=== PATIENT | male | born 1960 | race Caucasian/White ===

== ENCOUNTER 2023-03-26 10:07 | Observation (INO) | payer OTHER, SELFPAY ==
[2023-03-26] VITALS (28 sets, daily range): BP systolic 126–160; BP diastolic 76–96; PULSE 51–77; RESP 16–20; TEMP 36.4–36.9; O2SAT 95–99; BMI 30.3
--- NOTE | 2023-03-26 10:33 | CRLHL7_ITS ---
For Patients: As a result of the Century Cures Act, medical imaging exams and procedure reports are released immediately into your electronic medical record. You may view this report before your referring provider. If you have questions, please contact your health care provider. INDICATION: Chest pain, shortness of breath, leg pain, swelling. TECHNIQUE: CT chest PE was acquired with 95 cc Isovue 370 IV contrast. COMPARISON: None. FINDINGS: Heart and vasculature: Contrast opacification of the pulmonary arterial tree is adequate. Acute multifocal pulmonary emboli involving the bilateral upper and lower lobe segmental/subsegmental pulmonary arteries.. Cardiomegaly with coronary artery calcifications. Mild ascending aortic aneurysm measuring 4.0 centimeters.. Lungs and pleura: Some ground-glass consolidation the left lung base, possibly related to pulmonary infarction. Trace left pleural effusion with compressive atelectasis. No pneumothorax. Lymph nodes/mediastinum: No mediastinal, hilar, or axillary adenopathy. Chest wall: No masses. Upper abdomen: No acute or significant findings. Bones: Unremarkable for age. IMPRESSION: Acute multifocal pulmonary emboli involving the bilateral upper and lower lobe segmental/subsegmental pulmonary arteries. Some flattening of the intraventricular septum which could suggest early right heart strain, however study is confounded by cardiomegaly. Recommend correlation with troponin. Some ground-glass consolidation in the left lung base, likely pulmonary infarction. No focal consolidations. Trace left pleural effusion. Case discussed with Matt Carrera at 12:52 p.m. on 03/26/20[address] Please note that all CT scans at this facility use dose modulation, iterative reconstruction, and/or weight-based dosing when appropriate to reduce radiation dose to as low as reasonably achievable. Dictated by Tutu Monroe MD @ 03/26/2023 12:54:27 PM (Electronically Signed)
--- NOTE | 2023-03-26 10:34 | CRLHL7_ITS ---
For Patients: As a result of the Century Cures Act, medical imaging exams and procedure reports are released immediately into your electronic medical record. You may view this report before your referring provider. If you have questions, please contact your health care provider. INDICATION: Swell COMPARISON: None. TECHNIQUE: A compression venous ultrasound exam was performed of the right lower extremity using li-scale imaging, color Doppler and spectral Doppler analysis. FINDINGS: Sonographic imaging of the right lower extremity demonstrates normal compressibility and color Doppler venous blood flow within the common femoral vein, deep femoral vein, and the proximal greater saphenous vein. Within the thigh, the femoral vein is patent and compressible. At a lower level, the popliteal and posterior tibial veins also do not show compressibility and color Doppler venous blood flow. Hypoechoic clot is present within the posterior tibial vein, popliteal vein and peroneal veins. Limited imaging of the contralateral groin demonstrates a normal spectral waveform and color Doppler venous blood flow within the left common femoral vein. IMPRESSION: Positive DVT within the right distal popliteal vein, peroneal veins and posterior tibial vein. Spoke with Dr. Carrera [id number] 03.26.23. Dictated by Tony Florentino MD @ 03/26/2023 11:55:59 AM (Electronically Signed)
--- NOTE | 2023-03-26 10:36 | ED.GENADULT ---
HPI - General Adult General Time Seen by Provider: 10:36 Date Seen: 03/26/23 Chief complaint: Lower Extremity Swelling Stated complaint: Swelling R leg Time Seen by Provider: 03/26/23 10:24 Source: patient Mode of arrival: ambulatory Limitations: no limitations History of Present Illness HPI narrative: Patient is a 62 year white male who has had right leg swelling for the last couple of days it has been tender at times and disc uncomfortable he feels that is more enlarged than his left leg. On measurement he has 2 cm bigger calf circumference on the right than left. He has also had some left-sided chest discomfort that woke him from sleep a couple nights ago did not recur last night. But it has been intermittently tenderness posterior chest. He denies anterior chest pain denies diaphoresis or nausea. Generally is healthy, his cholesterol has been good he is nonhypertensive nondiabetic. He has no reported significant family history. The patient reports he probably had COVID as his was tested positive about a month ago, he had similar symptoms. He has gotten better from that but still feels some fatigue. No other specific complaints. At times he does feel little short of breath but not continually. His O2 sat here is 97% on room air. Related Data Home Medications Medication Instructions Recorded Confirmed aspirin 81 mg capsule 81 mg PO DAILY 03/26/23 03/26/23 ibuprofen 200 mg tablet (Advil) 200 mg PO Q8H 03/26/23 03/26/23 Previous Rx's Medication Instructions Recorded rivaroxaban 15 mg (42)-20 mg (9) See Rx Instructions PO .COMPLEX 03/26/23 tablets in a starter pack (Xarelto #51 ea DVT-PE Treatment 30-Day Starter) Allergies Allergy/AdvReac Type Severity Reaction Status Date / Time No Known Drug Allergies Allergy Verified 03/26/23 10:16 Review of Systems Status of ROS: Reports: 10 or more systems reviewed and unremarkable except as noted in History and below PFSH PFSH Social History Smoking Status: Never smoker Do you use any of these nicotine containing products: None How often do you have a drink containing alcohol: 4 or more times a week How many standard drinks containing alcohol do you have on a typical day: 1 or 2 How often do you have six or more drinks on one occasion: Never AUDIT-C Alcohol total score: 4 Non-prescribed substance use: denies use service: No Exam Narrative: Exam Narrative: Objective: Vital signs show elevated blood pressure, pulse regular at 77 respiratory rate 18 unlabored O2 sat 97% on room air temperature 97.6? HEENT is unremarkable no cyanosis , speaks in even unlabored sentences Chest is clear Heart rhythm regular heart murmur Abdomen benign soft Extremities show 2 cm increase in calf circumference on the right versus left, negative Homans sign Good distal CMS in lower extremities Const: Vital Signs, click to edit/add: Vital Signs - 24 hr 03/26/23 10:17 03/26/23 10:33 03/26/23 11:36 Temperature 97.6 F Pulse Rate 60 Pulse Rate [Right Pulse Oximeter] 77 Respiratory Rate 18 Blood Pressure 136/85 Blood Pressure [Ri ght Upper Arm] 159/95 H Pulse Oximetry 97 99 98 Oxygen Delivery Me thod Room Air 03/26/23 11:37 03/26/23 11:45 03/26/23 12:11 Temperature Pulse Rate 62 62 58 L Pulse Rate [Right Pulse Oximeter] Respiratory Rate Blood Pressure Blood Pressure [Ri ght Upper Arm] Pulse Oximetry 98 97 95 Oxygen Delivery Me thod 03/26/23 12:15 03/26/23 12:21 03/26/23 12:30 Temperature Pulse Rate 53 L 51 L 52 L Pulse Rate [Right Pulse Oximeter] Respiratory Rate Blood Pressure 134/85 Blood Pressure [Ri ght Upper Arm] Pulse Oximetry 98 98 99 Oxygen Delivery Me thod 03/26/23 12:32 03/26/23 12:45 03/26/23 13:00 Temperature Pulse Rate 52 L 51 L 52 L Pulse Rate [Right Pulse Oximeter] Respiratory Rate Blood Pressure 145/79 H Blood Pressure [Ri ght Upper Arm] Pulse Oximetry 98 99 99 Oxygen Delivery Me thod 03/26/23 13:02 03/26/23 13:15 03/26/23 13:49 Temperature Pulse Rate 54 L 55 L 57 L Pulse Rate [Right Pulse Oximeter] Respiratory Rate Blood Pressure 160/96 H Blood Pressure [Ri ght Upper Arm] Pulse Oximetry 98 99 99 Oxygen Delivery Me thod Course Vital Signs Vital signs: Initial Vital Signs Temperature 97.6 F 03/26/23 10:17 Temperature Source Temporal Artery Scan 03/26/23 10:17 Pulse Rate 77 03/26/23 10:17 Respiratory Rate 18 03/26/23 10:17 Blood Pressure 159/95 H 03/26/23 10:17 Blood Pressure Mean 116 H 03/26/23 10:17 Blood Pressure Position Sitting 03/26/23 10:17 Pulse Oximetry 97 03/26/23 10:17 Oxygen Delivery Method Room Air 03/26/23 10:17 Vital Signs Temperature 97.6 F 03/26/23 10:17 Pulse Rate 77 03/26/23 10:17 Respiratory Rate 18 03/26/23 10:17 Blood Pressure 159/95 H 03/26/23 10:17 Pulse Oximetry 97 03/26/23 10:17 Oxygen Delivery Method Room Air 03/26/23 10:17 Temperature 97.6 F 03/26/23 10:17 Pulse Rate 57 L 03/26/23 13:49 Respiratory Rate 18 03/26/23 10:17 Blood Pressure 160/96 H 03/26/23 13:02 Pulse Oximetry 99 03/26/23 13:49 Oxygen Delivery Method Room Air 03/26/23 10:17 Medical Decision Making MDM Narrative Medical decision making narrative: [age] year white male with an unremarkable past medical history with right calf swelling and pain, leg pain, and some left posterior chest discomfort over the last couple of days. Rule out DVT, rule out PE, check labs, ultrasound of the right lower extremity and CT scan of the chest. Laboratory studies as mention. Will start aspirin, some IV fluid, disposition pending findings above. Patient comfortable plan. Given his recent probable COVID, concern for hypercoagulable state would be present. The patient's EKG by my read shows normal sinus rhythm no acute ST T wave changes Addendum 1:22 p.m. the patient's EKG by my read looks unremarkable for ST T wave changes, CRP slightly elevated D-dimer is markedly elevated 3.93, troponin importantly is negative, white count hemoglobin are normal. ER profile is largely unremarkable other than nonfasting glucose 139, proBNP is normal 141. Patient has extensive DVT in his right lower extremity below the knee, he also has segmental and subsegmental pulmonary emboli and bilateral lungs. I did discuss this with the [place] transportation refrigeration technician who recommended 24 hours of observation, IV heparin, and possibly an echo before he goes home and then repeat the echo in 3 months. He can likely go home on Xarelto treatment dose. Will discuss with hospitalist regarding admission plan. Lab Data Labs: Lab Results 03/26/23 Range/Units 10:55 WBC 7.31 (4.50-11.00) K/uL RBC 4.24 L (4.30-5.90) m/uL Hgb 13.5 (13.5-17.5) gm/dL Hct 39.0 (37.0-53.0) % MCV 92 (80-100) fL MCH 32 (26-34) pg MCHC 35 (32-36) gm/dL RDW Coeff of Felicia 12.1 (11.5-15.5) % Plt Count 272 (140-440) K/uL Neut % (Auto) 72.6 H (42.0-72.0) % Lymph % (Auto) 11.8 L (20-44) % Travis % (Auto) 12.4 H (0.0-11.0) % Eos % (Auto) 2.7 (0.0-7.0) % Baso % (Auto) 0.4 (0.0-3.0) % Neut # (Auto) 5.30 (1.7-7.0) K/uL Lymph # (Auto) 0.90 (0.90-2.90) K/uL Travis # (Auto) 0.90 (0.00-0.90) K/UL Eos # (Auto) 0.20 (0.00-0.50) K/uL Baso # (Auto) 0.03 (0.00-0.30) K/uL Abs Immat Gran (auto) 0.01 (0.00-0.30) K/uL Imm/Tot Granulo (auto) 0.1 % INR 0.96 (0.91-1.10) APTT 31 (23-33) Seconds D-Dimer Quant (PE/DVT) 3.93 H (0.00-0.50) ug/ml Sodium 135 (135-149) mmol/L Potassium 4.0 (3.6-5.1) mmol/L Chloride 101 (96-114) mmol/L Carbon Dioxide 25 (20-32) mmol/L Anion Gap 9 (7-15) mEq/L BUN 13 (7-30) mg/dL Creatinine 0.8 (0.5-1.5) mg/dL Estimated Creat Clear 77.06 Estimated GFR 99 ml/min Glucose 139 H (60-115) mg/dL Calcium 8.7 (8.4-10.6) mg/dL Total Bilirubin 1.0 (0.1-1.5) mg/dL Direct Bilirubin 0.0 (0.0-0.5) mg/dL AST 47 H (12-35) U/L ALT 52 H (4-50) U/L Alkaline Phosphatase 74 (40-150) U/L Troponin I < 0.01 L (0.01-0.04) ng/mL C-Reactive Protein 6.2 H (0.5-1.0) mg/dL NT-Pro-B Natriuret Pep 141 pg/mL Total Protein 7.5 (6.0-8.3) g/dL Albumin 4.0 (3.3-5.0) g/dL Discharge Plan Discharge Clinical Impression: Right leg swelling, Chest pain, Deep vein thrombosis Patient Disposition: Admitted As Inpatient Condition: Stable
[2023-03-26] MEDS: ASPIRIN 81 MG TAB.CHEW 324 MG PO (10:50)
[2023-03-26 11:24] LABS: Chloride* 101 mmol/L (96-114); Sodium* 135 mmol/L (135-149)
[2023-03-26] MEDS: 0.9 % SODIUM CHLORIDE 500 ML 500 ML IV (11:25)
[2023-03-26 11:26] LABS: Basophils Absolute Auto 0.03 K/uL (0.00-0.30); Basophils Percent Auto 0.4 % (0.0-3.0); Creatinine* 0.8 mg/dL (0.5-1.5); Eosinophils Percent Auto 2.7 % (0.0-7.0); Est. Creatinine Clearance* 77.06; Estimated Glomerular Filt Rate 99 ml/min; Hemoglobin* 13.5 gm/dL (13.5-17.5); Immature Granulocytes Abs Auto 0.01 K/uL (0.00-0.30); Immature Granulocytes Pct Auto 0.1 %; Lymphocytes Percent Auto 11.8 % (20-44); Mean Corpuscular HGB Conc 35 gm/dL (32-36); Mean Corpuscular Hemoglobin 32 pg (26-34); Mean Corpuscular Volume 92 fL (80-100); Monocytes Percent Auto 12.4 % (0.0-11.0); Neutrophils Percent Auto 72.6 % (42.0-72.0); Platelet Count* 272 K/uL (140-440); RDW Coefficient of Variation % 12.1 % (11.5-15.5); Red Blood Count 4.24 m/uL (4.30-5.90); White Blood Count* 7.31 K/uL (4.50-11.00)
[2023-03-26 11:27] LABS: Alanine Aminotransferase* 52 U/L (4-50); Alkaline Phosphatase* 74 U/L (40-150); Anion Gap 9 mEq/L (7-15); Aspartate Amino Transferase* 47 U/L (12-35); Blood Urea Nitrogen* 13 mg/dL (7-30); Carbon Dioxide* 25 mmol/L (20-32); Total Protein* 7.5 g/dL (6.0-8.3)
[2023-03-26 11:28] LABS: Calcium* 8.7 mg/dL (8.4-10.6); Glucose* 139 mg/dL (60-115)
[2023-03-26 11:30] LABS: C Reactive Protein* 6.2 mg/dL (0.5-1.0); Slide Review Reflex No
[2023-03-26 11:33] LABS: D Dimer Quantitative* 3.93 ug/ml (0.00-0.50)
[2023-03-26 11:47] LABS: NT Pro B Type NatriureticPept* 141 pg/mL; Troponin I* < 0.01 ng/mL (0.01-0.04)
[2023-03-26] MEDS: RIVAROXABAN 10 MG TABLET 15 MG PO (12:16)
[2023-03-26] MEDS: HEPARIN 25,000 UNIT/500 ML BAG 30 UNIT IV (13:45)
[2023-03-26] MEDS: HEPARIN 5,000 UNIT/0.5 ML INJ 7700 UNIT IVP (13:46)
[2023-03-26 13:58] LABS: INR 0.96 (0.91-1.10); Prothrombin Time 13.3 Seconds
[2023-03-26 13:59] LABS: Partial Thromboplastin Time* 31 Seconds (23-33)
--- NOTE | 2023-03-26 15:06 | ED.NURSE ---
Pt report given off to Damari EDWARDS.
--- NOTE | 2023-03-26 16:25 | P.IMHP_ITS ---
Hospitalist- H&P: HPI History of Present Illness Date Seen: 03/26/23 Chief complaint: Swelling R leg Narrative: Woodrow Camejo is a 62 year old male without significant past medical history and currently not on any prescription medications is admitted to the medical floor from the ED for management of acute pulmonary emboli and right lower extremity DVT. Patient reports likely having COVID approximately 1 month ago. He was not tested during his symptomatic period. However his did test positive with similar symptoms thereafter. Other than lingering fatigue he had been feeling fairly well. last week he noticed right lower leg pain with swelling which began in the last several days. By Friday of this week he was experiencing left-sided lateral chest pain. He denies headache or dizziness. Mild intermittent lightheadedness and ongoing fatigue. Denies recent fevers or chills. Denies cough or shortness of breath. Denies nausea, vomiting, diarrhea. No change in bowels or bladder. Patient is otherwise quite healthy, active, and exercises regularly. Has been traveling but nothing with extensive periods of inactivity. Denies significant past medical history. Nonsmoker. Has 1 alcoholic drink every evening. When discussing family history, he tells me his sister had a large cardiac event which may have been related to a clot in her heart. He is not certain of details however. Review of Systems Narrative: REVIEW OF SYSTEMS: Complete review of systems performed and negative unless otherwise stated in HPI or below. PFS PFS Social History Smoking Status: Never smoker Do you use any of these nicotine containing products: None How often do you have a drink containing alcohol: 4 or more times a week How many standard drinks containing alcohol do you have on a typical day: 1 or 2 How often do you have six or more drinks on one occasion: Never AUDIT-C Alcohol total score: 4 Non-prescribed substance use: denies use service: No Meds Home Medications and Allergies Home Medications Medication Instructions Recorded Confirmed Type ibuprofen 200 mg tablet (Advil) 200 mg PO Q8H PRN 03/26/23 03/26/23 History magnesium oxide 400 mg PO DAILY PRN 03/26/23 03/26/23 History Allergies Allergy/AdvReac Type Severity Reaction Status Date / Time No Known Drug Allergies Allergy Verified 03/26/23 10:16 Exam Narrative: Exam Narrative: PHYSICAL EXAM General: Sitting up in chair, very pleasant, conversant, NAD HEENT: Normocephalic, atraumatic, sclera white, EOMI, oral mucosa moist Cardiovascular: RRR, S1S2. No pitting edema Pulmonary: CTA bilaterally without rhonchi, rales, expiratory wheezes. No dyspnea Abdominal: Soft, nondistended, NTTP Neurological: Alert, answering questions appropriately, cranial nerves intact, no focal findings Extremities: Right lower extremity with moderate swelling when compared to left, no erythema or streaking, skin intact.. AROMI. Neurovascularly intact Skin: Warm, dry. Const: Vital Signs, click to edit/add: Vital Signs - 24 hr 03/26/23 10:17 03/26/23 10:33 03/26/23 11:36 Temperature 97.6 F Pulse Rate 60 Pulse Rate [Right Brachial] Pulse Rate [Right Pulse Oximeter] 77 Respiratory Rate 18 Blood Pressure 136/85 Blood Pressure [Ri ght Arm] Blood Pressure [Ri ght Upper Arm] 159/95 H Pulse Oximetry 97 99 98 Oxygen Delivery Me thod Room Air 03/26/23 11:37 03/26/23 11:45 03/26/23 12:11 Temperature Pulse Rate 62 62 58 L Pulse Rate [Right Brachial] Pulse Rate [Right Pulse Oximeter] Respiratory Rate Blood Pressure Blood Pressure [Ri ght Arm] Blood Pressure [Ri ght Upper Arm] Pulse Oximetry 98 97 95 Oxygen Delivery Me thod 03/26/23 12:15 03/26/23 12:21 03/26/23 12:30 Temperature Pulse Rate 53 L 51 L 52 L Pulse Rate [Right Brachial] Pulse Rate [Right Pulse Oximeter] Respiratory Rate Blood Pressure 134/85 Blood Pressure [Ri ght Arm] Blood Pressure [Ri ght Upper Arm] Pulse Oximetry 98 98 99 Oxygen Delivery Me thod 03/26/23 12:32 03/26/23 12:45 03/26/23 13:00 Temperature Pulse Rate 52 L 51 L 52 L Pulse Rate [Right Brachial] Pulse Rate [Right Pulse Oximeter] Respiratory Rate Blood Pressure 145/79 H Blood Pressure [Ri ght Arm] Blood Pressure [Ri ght Upper Arm] Pulse Oximetry 98 99 99 Oxygen Delivery Me thod 03/26/23 13:02 03/26/23 13:15 03/26/23 13:49 Temperature Pulse Rate 54 L 55 L 57 L Pulse Rate [Right Brachial] Pulse Rate [Right Pulse Oximeter] Respiratory Rate 20 Blood Pressure 160/96 H Blood Pressure [Ri ght Arm] Blood Pressure [Ri ght Upper Arm] Pulse Oximetry 98 99 99 Oxygen Delivery Me thod 03/26/23 14:00 03/26/23 14:02 03/26/23 14:15 Temperature Pulse Rate 55 L 51 L 59 L Pulse Rate [Right Brachial] Pulse Rate [Right Pulse Oximeter] Respiratory Rate Blood Pressure 127/78 Blood Pressure [Ri ght Arm] Blood Pressure [Ri ght Upper Arm] Pulse Oximetry 98 98 95 Oxygen Delivery Me thod 03/26/23 14:30 03/26/23 14:32 03/26/23 14:45 Temperature Pulse Rate 60 54 L 57 L Pulse Rate [Right Brachial] Pulse Rate [Right Pulse Oximeter] Respiratory Rate 20 Blood Pressure 131/86 Blood Pressure [Ri ght Arm] Blood Pressure [Ri ght Upper Arm] Pulse Oximetry 97 97 96 Oxygen Delivery [facility] 03/26/23 15:33 Temperature 98.5 F Pulse Rate Pulse Rate [Right Brachial] 61 Pulse Rate [Right Pulse Oximeter] Respiratory Rate 18 Blood Pressure Blood Pressure [Ri ght Arm] 139/82 Blood Pressure [Ri ght Upper Arm] Pulse Oximetry 99 Oxygen Delivery Me thod Room Air Hospitalist - H&P: Result Labs Labs: Short CBC 03/26/23 Range/Units 10:55 WBC 7.31 (4.50-11.00) K/uL Hgb 13.5 (13.5-17.5) gm/dL Hct 39.0 (37.0-53.0) % Plt Count 272 (140-440) K/uL BMP 03/26/23 10:55 Sodium 135 Potassium 4.0 Chloride 101 Carbon Dioxide 25 BUN 13 Creatinine 0.8 Glucose 139 H Calcium 8.7 Cardiac Enzymes 03/26/23 Range/Units 10:55 Troponin I < 0.01 L (0.01-0.04) ng/mL Liver Function 03/26/23 Range/Units 10:55 Total Bilirubin 1.0 (0.1-1.5) mg/dL Direct Bilirubin 0.0 (0.0-0.5) mg/dL AST 47 H (12-35) U/L ALT 52 H (4-50) U/L Alkaline Phosphatase 74 (40-150) U/L Albumin 4.0 (3.3-5.0) g/dL ECG Attestation: I personally reviewed and interpreted this ECG as follows: Interpretation: NSR, ventricular rate 66, QTC [address] scan - chest: Radiologist's impression: CT chest PE was acquired with 95 cc Isovue 370 IV contrast. COMPARISON: None. FINDINGS: Heart and vasculature: Contrast opacification of the pulmonary arterial tree is adequate. Acute multifocal pulmonary emboli involving the bilateral upper and lower lobe segmental/subsegmental pulmonary arteries.. Cardiomegaly with coronary artery calcifications. Mild ascending aortic aneurysm measuring 4.0 centimeters.. Lungs and pleura: Some ground-glass consolidation the left lung base, possibly related to pulmonary infarction. Trace left pleural effusion with compressive atelectasis. No pneumothorax. Lymph nodes/mediastinum: No mediastinal, hilar, or axillary adenopathy. Chest wall: No masses. Upper abdomen: No acute or significant findings. Bones: Unremarkable for age. IMPRESSION: Acute multifocal pulmonary emboli involving the bilateral upper and lower lobe segmental/subsegmental pulmonary arteries. Some flattening of the intraventricular septum which could suggest early right heart strain, however study is confounded by cardiomegaly. Recommend correlation with troponin. Some ground-glass consolidation in the left lung base, likely pulmonary infarction. No focal consolidations. Trace left pleural effusion. Venous US: Radiologist's impression: TECHNIQUE: A compression venous ultrasound exam was performed of the right lower extremity using li-scale imaging, color Doppler and spectral Doppler analysis. FINDINGS: Sonographic imaging of the right lower extremity demonstrates normal compressibility and color Doppler venous blood flow within the common femoral vein, deep femoral vein, and the proximal greater saphenous vein. Within the thigh, the femoral vein is patent and compressible. At a lower level, the popliteal and posterior tibial veins also do not show compressibility and color Doppler venous blood flow. Hypoechoic clot is present within the posterior tibial vein, popliteal vein and peroneal veins. Limited imaging of the contralateral groin demonstrates a normal spectral waveform and color Doppler venous blood flow within the left common femoral vein. IMPRESSION: Positive DVT within the right distal popliteal vein, peroneal veins and posterior tibial vein. Assessment and Plan Assessment and plan (1) Pulmonary embolus: Problem comment: -multifocal involving the bilateral upper and lower lobe segmental/subsegmental pulmonary arteries, possible early right heart strain, cardiomegaly -ED provider discussed with [employer] waste picker, recommending 24 hours of heparin prior to starting DOAC -transition to oral apixaban 03/27, discussed risks and benefits, avoid use of NSAIDs -echocardiogram this afternoon -repeat echocardiogram in 3 months recommended -given extent of PE findings, RLE DVT, cardiomegaly, family cardiac history, recommend outpatient Cardiology follow-up Status: Acute (2) Deep vein thrombosis: Problem comment: -right distal popliteal vein, peroneal veins and posterior tibial vein -management as above Status: Acute Plan CODE: Full as discussed with patient VTE PPX: PE/DVT therapeutic management Disposition: Observation
[2023-03-26 16:50] LABS: INR 1.35 (0.91-1.10); Prothrombin Time 17.4 Seconds
[2023-03-26] MEDS: HEPARIN 25,000 UNIT/500 ML BAG 24 UNIT IV (18:17)
--- NOTE | 2023-03-26 21:47 | PC.NURSE ---
Patient was admitted to [facility] for PE/DVT with Tammy present. Reports aching in RLE, nonpitting edema noted in calf, CMS intact. Has had intermittent pain in left lateral side from lower rib cage to upper hip. Has experienced SOB with exertion prior to admission. epic ambulatory analyst NSR. HT regular. Education verbal/written on PE/DVT. Instructed patient to report any CP, diaphoresis, SOB, dizziness, cough. Denies these symptoms at this time. Heparin gtt running, critical PTT reported to PA (Brenna) instructed to follow protocol. PTT was >180 at 1627, Heparin gtt was turned off from [id number] and restarted at 1200 units/hr. Verified by Alise Raphael (pharmacy). Ate well, up to BR indep.
[2023-03-27 00:38] LABS: Partial Thromboplastin Time* 66 Seconds (23-33)
[2023-03-27 03:00] VITALS: BP 123/81; PULSE 62; RESP 14; TEMP 36.8; O2SAT 97; O2SAT 98
--- NOTE | 2023-03-27 04:43 | PC.NURSE ---
@ 0015 PTT 66. No rate change or bolus required per protocol. Next PTT draw at 0645
[2023-03-27 06:54] LABS: INR 1.09 (0.91-1.10); Partial Thromboplastin Time* 64 Seconds (23-33); Prothrombin Time 14.8 Seconds
[2023-03-27 06:57] LABS: Hematocrit 35.6 % (37.0-53.0); Hemoglobin* 12.2 gm/dL (13.5-17.5); Mean Corpuscular HGB Conc 34 gm/dL (32-36); Mean Corpuscular Hemoglobin 32 pg (26-34); Mean Corpuscular Volume 92 fL (80-100); Platelet Count* 291 K/uL (140-440); Red Blood Count 3.87 m/uL (4.30-5.90); White Blood Count* 6.56 K/uL (4.50-11.00)
[2023-03-27 07:02] LABS: Slide Review Reflex No
--- NOTE | 2023-03-27 07:05 | PC.NURSE ---
@0645 PTT 64, No bolus or rate change. Next PTT scheduled for 1300
[2023-03-27 07:15] VITALS: BP 114/84; PULSE 68; RESP 14; TEMP 36.9; O2SAT 97
[2023-03-27 07:31] LABS: Chloride* 106 mmol/L (96-114); Potassium* 4.6 mmol/L (3.6-5.1); Sodium* 138 mmol/L (135-149)
[2023-03-27 07:33] LABS: Creatinine* 0.8 mg/dL (0.5-1.5); Est. Creatinine Clearance* 77.06; Estimated Glomerular Filt Rate 99 ml/min
[2023-03-27 07:34] LABS: Anion Gap 7 mEq/L (7-15); Blood Urea Nitrogen* 10 mg/dL (7-30); Calcium* 8.5 mg/dL (8.4-10.6); Carbon Dioxide* 25 mmol/L (20-32); Glucose* 104 mg/dL (60-115)
[2023-03-27 08:30] VITALS: PULSE 65
[2023-03-27] MEDS: APIXABAN 5 MG TABLET 10 MG PO (08:36)
--- NOTE | 2023-03-27 11:23 | PC.NURSE ---
Discharge note: Pt alert and oriented, pleasant and cooperative. Ind in room. Tolerating diet, voiding without issue. Denies pain, states minor discomfort to back of RLE d/t DVT but declines need for any PRN pain medication. Pt Heparin drip stopped at 0915am this AM, per ok from , as pt started on PO Eliquis, pt educated on tapering dose ordered for d/c, questions answered. IV removed prior to d/c intact without issue. D/c instructions reviewed with pt and pt's spouse 'Tammy' at bedside, questions answered. Pt filled out ANSHUL form as pt's PCP and f/u appt [place] [facility] [place] fax[place] to Medical Records, copy provided to pt at d/c. All questions answered. Pt amb off unit to spouses car, declining offer for WC ride. Pt d/c at 1106am.
--- NOTE | 2023-03-27 16:56 | PM.DS1 ---
DS: Providers Provider Date Seen: 03/27/23 Date of admission: 03/26/23 14:48 Primary care physician: Shamika Graf PA-C Admitting Clinician: Carley Sparrow MD Attending Physician on discharge: Camacho Cristina MD Date of Discharge: 03/27/23 DS: Diagnosis Discharge Diagnosis (1) Pulmonary embolus: Status: Acute Problem details: Patient has a 1 week history of leg swelling and pain and 2 days ago had an episode of chest pain. In the emergency department diagnosed with multifocal PE and DVT. He had normal oxygenation normal vital signs, no hypotension and no significant symptoms of chest pain or leg pain during his hospital stay. He had normal troponin and proBNP. Echocardiogram showed enlargement of the right ventricle but was otherwise unremarkable. He was initially treated with IV heparin and then transitioned to oral apixaban. (2) Deep vein thrombosis: Status: Acute Problem details: -right distal popliteal vein, peroneal veins and posterior tibial vein -management as above DS: Summary Hospital Course Hospital Course: 62-year-old male with no previous history of thromboembolism admitted to the hospital with DVT and pulmonary embolism. Prior to admission eat had about a 1 week history of leg pain and swelling and 2 days prior to admission it had an episode of chest pain suspicious for pulmonary infarct. His symptoms were all suspected to be due to DVT and PE. He is treated with IV heparin and then transition to oral apixaban. During his hospital stay he had normal vital signs without hypotension or hypoxia or tachycardia. He was asymptomatic during his hospital stay. Patient had had COVID with a somewhat slow recovery from his COVID illness over the last 3-4 weeks. It was suspected that his COVID illness was the trigger for his thromboembolism. There were no other obvious causes for this. The patient has not had prolonged immobilization, lower extremity injury, family history of thromboembolism, smoking, malignancy. He was recommended to have a minimum 3 month course of apixaban. Status at Discharge Functional status at discharge: independent ambulation Overall status at discharge: patient is back to baseline Time Spent with Patient Time attestation: Total time spent providing and/or coordinating discharge services: 40 minutes in coordination of care and discussing with patient diagnosis and treatment of DVT and PE, risk stratify ink for future complications, risk of bleeding and prevention of bleeding, medication and drug interactions, outpatient follow-up for further assessment. Exam Narrative: Exam Narrative: He is alert and appears in no distress. Breathing is unlabored. Lungs are clear to auscultation. Cardiovascular: S1, S2, regular rate and rhythm. Abdomen is soft without tenderness or mass. Mild edema in his right lower extremity. Good peripheral pulses. Const: Vital Signs, click to edit/add: Vital Signs - 24 hr 03/26/23 16:59 03/26/23 17:47 03/26/23 18:27 Temperature Pulse Rate 62 Pulse Rate [Right Brachial] Respiratory Rate 18 Blood Pressure [Ri ght Arm] Pulse Oximetry 99 Oxygen Delivery Me thod Room Air Room Air 03/26/23 19:10 03/26/23 19:25 03/26/23 23:00 Temperature 98.2 F Pulse Rate 56 L Pulse Rate [Right Brachial] 59 L Respiratory Rate 16 Blood Pressure [Ri ght Arm] 126/76 Pulse Oximetry 98 98 Oxygen Delivery Me thod Room Air 03/26/23 23:00 03/26/23 23:00 03/27/23 03:00 Temperature 98.3 F Pulse Rate Pulse Rate [Right Brachial] 56 L Respiratory Rate 16 16 Blood Pressure [Ri ght Arm] 134/84 Pulse Oximetry 98 98 Oxygen Delivery Me thod Room Air 03/27/23 03:00 03/27/23 07:15 03/27/23 07:15 Temperature 98.3 F 98.4 F Pulse Rate Pulse Rate [Right Brachial] 62 68 68 Respiratory Rate 14 14 14 Blood Pressure [Ri ght Arm] 123/81 114/84 Pulse Oximetry 97 97 Oxygen Delivery Me thod Room Air Room Air 03/27/23 08:30 Temperature Pulse Rate 65 Pulse Rate [Right Brachial] Respiratory Rate Blood Pressure [Ri ght Arm] Pulse Oximetry Oxygen Delivery Me thod DS: Data Data Completed and Pending Labs on day of discharge: Labs from last 24 hours 03/27/23 03/27/23 03/27/23 06:18 06:18 00:17 WBC 6.56 RBC 3.87 L Hgb 12.2 L Hct 35.6 L MCV 92 MCH 32 MCHC 34 Plt Count 291 INR 1.09 Cancelled APTT 64 H 66 H Sodium 138 Potassium 4.6 Chloride 106 Carbon Dioxide 25 Anion Gap 7 BUN 10 Creatinine 0.8 Estimated Creat Clear 77.06 Estimated GFR 99 Glucose 104 Calcium 8.5 03/26/23 16:27 WBC RBC Hgb Hct MCV MCH MCHC Plt Count INR APTT Sodium Potassium Chloride Carbon Dioxide Anion Gap BUN Creatinine Estimated Creat Clear Estimated GFR Glucose Calcium Imaging CT scan - chest: My impression: INDICATION: Chest pain, shortness of breath, leg pain, swelling. TECHNIQUE: CT chest PE was acquired with 95 cc Isovue 370 IV contrast. COMPARISON: None. FINDINGS: Heart and vasculature: Contrast opacification of the pulmonary arterial tree is adequate. Acute multifocal pulmonary emboli involving the bilateral upper and lower lobe segmental/subsegmental pulmonary arteries.. Cardiomegaly with coronary artery calcifications. Mild ascending aortic aneurysm measuring 4.0 centimeters.. Lungs and pleura: Some ground-glass consolidation the left lung base, possibly related to pulmonary infarction. Trace left pleural effusion with compressive atelectasis. No pneumothorax. Lymph nodes/mediastinum: No mediastinal, hilar, or axillary adenopathy. Chest wall: No masses. Upper abdomen: No acute or significant findings. Bones: Unremarkable for age. IMPRESSION: Acute multifocal pulmonary emboli involving the bilateral upper and lower lobe segmental/subsegmental pulmonary arteries. Some flattening of the intraventricular septum which could suggest early right heart strain, however study is confounded by cardiomegaly. Recommend correlation with troponin. Some ground-glass consolidation in the left lung base, likely pulmonary infarction. No focal consolidations. Trace left pleural effusion. Venous US: Radiologist's impression: INDICATION: Swell COMPARISON: None. TECHNIQUE: A compression venous ultrasound exam was performed of the right lower extremity using li-scale imaging, color Doppler and spectral Doppler analysis. FINDINGS: Sonographic imaging of the right lower extremity demonstrates normal compressibility and color Doppler venous blood flow within the common femoral vein, deep femoral vein, and the proximal greater saphenous vein. Within the thigh, the femoral vein is patent and compressible. At a lower level, the popliteal and posterior tibial veins also do not show compressibility and color Doppler venous blood flow. Hypoechoic clot is present within the posterior tibial vein, popliteal vein and peroneal veins. Limited imaging of the contralateral groin demonstrates a normal spectral waveform and color Doppler venous blood flow within the left common femoral vein. IMPRESSION: Positive DVT within the right distal popliteal vein, peroneal veins and posterior tibial vein. Spoke with Dr. Carrera [id number] 03.26.23. Discharge Plan Discharge Disposition: Home, Self-Care Date of Admission: 03/26/23 14:48 Attending Provider on Discharge: Aiden Cristina Primary Care Provider: Shamika Graf Condition: Stable Anticipated Discharge Date/Time: 03/27/23 10:00 Discharge Medications: New Eliquis 5 mg Tablet 10 mg PO BID Qty: 74 0RF Rx Instructions: Take 2 tablets twice daily for 7 days then 1 tablet twice daily until instructed by your doctor. Continued magnesium oxide 400 mg magnesium tablet 400 mg PO DAILY PRN Discontinued ibuprofen [Advil] 200 mg tablet 200 mg PO Q8H PRN Discharge Orders: Discharge Order (Routine); Ordered 03/27/23 Ordered By: Aiden Cristina Patient Education: Apixaban (By mouth) (Eliquis), Pulmonary Embolism (DC), Deep Vein Thrombosis (DC) Additional Instructions: Apixaban 10 mg twice daily for 1 week then 5 mg twice daily for at least 3 months. See your doctor next week as previously scheduled to discuss your pulmonary embolism. Activity Level: No Restrictions Discharge Diet: Regular Follow Up Appointments: Sahmika Graf PA-C [Primary Care Provider] - Forms: [employer] Info Instructions
== END 2023-03-27 11:10 | disposition home or self-care (01) ==
LOC: ED 13:33 → MEDSURG 14:48
PROVIDERS: Physician Assistant; Admitting Provider Family Medicine; Emergency Provider Family Medicine; PCP Internal Medicine; Visit Provider Family Medicine
DX: I82.431 Acute embolism and thrombosis of right popliteal vein (principal); I26.99 Other pulmonary embolism without acute cor pulmonale; I82.451 Acute embolism and thrombosis of right peroneal vein; I82.441 Acute embolism and thrombosis of right tibial vein; R07.89 Other chest pain; R22.41 Localized swelling, mass and lump, right lower limb; M79.661 Pain in right lower leg; R53.83 Other fatigue; Z86.16 Personal history of COVID-19
CPT/HCPCS: 36415; 71275; 80048; 80076; 83880; 84484; 85025; 85027; 85379; 85610; 85730; 86140; 93005; 93306; 93971; 94761; 96361; 96365; 96366; 96375; 99285; G0378; A9270; J1644; J7120; Q9967